=== PATIENT | female | born 1945 | race African-American/Black ===

== ENCOUNTER → 2016-11-06 | Outpatient (CLI) | payer MEDICARE, MEDICAID ==
[~2016-11-06] MED LIST: ASPI-1159 PO; ATEN-42 PO; LEVO88TA7 PO
== END | disposition home or self-care (01) ==
LOC: MAMMO 09:02
PROVIDERS: ATTEND Specialist
DX: Z12.31 Encounter for screening mammogram for malignant neoplasm of breast (principal)
CPT/HCPCS: G0202

== ENCOUNTER → 2019-03-04 | Outpatient (CLI) | payer MEDICARE, MEDICAID ==
[~2019-03-04] MED LIST changes: +ALBUTEROL (0.083%) 2.5MG/3ML NEB ONE; -ASPI-1159 PO; +ASPI-1497 PO
== END | disposition home or self-care (01) ==
LOC: PF 10:08
PROVIDERS: ATTEND Internal Medicine
DX: J44.9 Chronic obstructive pulmonary disease, unspecified (principal); D86.0 Sarcoidosis of lung; J98.8 Other specified respiratory disorders
CPT/HCPCS: 94060; 94727; 94729